=== PATIENT | female | born 1935 | race Caucasian/White ===

== ENCOUNTER 2017-04-27 15:06 | Observation (INO) | payer MEDICARE, BC ==
[2017-04-27 16:23] LABS: Troponin I 0.034 ng/mL (< 0.028)
[2017-04-27] MEDS ORDERED: Loratadine 10 MG TAB PO PRN (17:52)
[2017-04-27] MEDS ORDERED: hydrALAZINE 20 MG/ML VIAL SLOW IVP PRN (17:52)
[2017-04-27] MEDS ORDERED: Nitroglycerin 0.4 MG TAB (25 Tab Bottle) SL PRN (17:52)
[2017-04-27] MEDS ORDERED: Nitroglycerin 0.4 MG TAB (25 Tab Bottle) PO PRN (17:52)
[2017-04-27] MEDS ORDERED: Senokot 8.6 MG TAB PO PRN (17:52)
[2017-04-27] MEDS ORDERED: Acetaminophen 325 MG TAB PO PRN (17:52)
[2017-04-27] MEDS ORDERED: Calcium Carbonate 500 MG ChewTAB PO PRN (17:52)
[2017-04-27] MEDS ORDERED: Ondansetron HCl/PF 4 MG/2 ML Vial IVP PRN (17:52)
[2017-04-27] MEDS ORDERED: Mag-Al 1200 mg/1200 mg/30 ML UDCUP PO PRN (17:52)
[2017-04-27] MEDS ORDERED: Bisacodyl 5 MG TAB PO PRN (17:52)
[2017-04-27] MEDS ORDERED: cloNIDine 0.1 MG TAB PO PRN (17:52)
[2017-04-27] MEDS ORDERED: traMADol HCl 50 MG TAB PO PRN ×2 (17:52→19:25)
[2017-04-27] MEDS ORDERED: Diabetic Tussin 200 MG/10 ML UDCUP PO PRN (17:52)
[2017-04-27] MEDS ORDERED: Benzonatate 100 MG CAP PO PRN (17:52)
[2017-04-27 18:15] VITALS: BMI 28.9
[2017-04-27] MEDS ORDERED: Aspirin 325 MG TAB PO SCH (18:30)
[2017-04-27 18:58] LABS: Cardiac Risk 2.5 (Less than 4.5)
[2017-04-27 19:03] LABS: Troponin I 0.036 ng/mL (< 0.028)
[2017-04-27 19:41] LABS: Bacteria/HPF None Seen HPF (None Seen); Bilirubin Small (Negative); Blood, Urine Negative (Negative); Clarity CLEAR (Clear); Glucose, Urine (Dipstick) Negative (Negative); Leukocyte Small (Negative); Nitrite Negative (Negative); Pathc Cast-AUWi Flag 0.94 (0-2.49); Protein, Urine (Dipstick) Trace mg/dL (Neg-Trace); RBC/HPF 0-3 HPF (0-3); Specific Gravity, Urine 1.027 (1.002-1.036); Squamous Epithelial 0-3 HPF (0-3); WBC/HPF 21-50 HPF (0-3)
[2017-04-27 19:44] LABS: Hyaline Casts/LPF 0-3 HYALINE CAST LPF (0-3 Hyaline)
[2017-04-27] MEDS: Famotidine 20 MG TAB PO SCH (20:30)
[2017-04-27] MEDS ORDERED: Simvastatin 20 MG TAB PO SCH (21:00)
[2017-04-27] MEDS ORDERED: Escitalopram Oxalate 20 mg Tablet PO SCH (21:00)
[2017-04-27] MEDS ORDERED: Atenolol 25 MG TAB PO SCH (21:00)
[2017-04-27] MEDS ORDERED: Loratadine 10 MG TAB PO SCH (21:00)
--- NOTE | 2017-04-28 00:34 | HP ---
DATE OF ADMISSION: 04/27/2017 PRIMARY CARE PHYSICIAN: in [place]. CHIEF COMPLAINT: Chest pain. HISTORY OF PRESENT ILLNESS: Ms. Sheffield is a very pleasant 82-year-old female with past medical histor y of hypertension, dyslipidemia as well as hypothyroidism and history of leukemia in the , who c mario to the emergency room with the above-mentioned complaint. History is mainly obtained by the uvaldo ent herself. Electronic medical records have been reviewed and the case has been discussed with the emergency room physician. According to Ms. Sehffield, she has hurt her left shoulder few months ago and has recently been put on tr amadol for it. She has been also getting steroid shots for her left shoulder pain and is in the proc ess of following up with a surgeon as to for specific therapy. Nevertheless, she woke up this mornin g, took a tramadol and fell back asleep in a recliner only to be woken up 2 hours later with chest pr essure-like sensation. It was mainly located in the left center of the chest, going towards the [facility] t center. She describes it as a 4/5, pressure, but not specific sharp pain. Later, she was very buddy seous with it. She denies any dizziness, palpitations. She denies any radiation of the pain. She d enies any vomiting or diaphoresis. She denies any jaw, back or shoulder pain. She denies any arm par aesthesias. The pain persisted for about 30 minutes and meanwhile her daughter brought her to the em ergency room. The patient took 4 baby aspirins at home without any significant benefit. She reports that she has seen a pin ball machine mechanic, Dr. Gudino in [facility] and has had a regular stress test done as an outpatient. Her last stress test done was about 5 years ago. She never had any abn ormal stress test. She also has had echocardiograms done in the past which seemingly normal results. She had a few episodes of some dizziness in the last 2 or 3 days. She also has one history of pass ing out spell about 4 years ago with her cardiac workup was unremarkable. Upon presentation to [place] [facility], she was hemodynamically stable with blood pressure 128/62, pulse of 91, saturating 94% on room air. Her initial workup included a 12-lead EKG which was unremarkable and cardiac enzymes which were normal. She is now being admitted to our facility for f urther workup and rule out acute coronary syndrome. She denies any other recent illnesses. No fever, chills, cough, sore throat or rhinorrhea. No short ness of breath, orthopnea, PND or edema. No nausea, vomiting, diarrhea, abdominal pain. No dysuria, frequency, urgency. PAST MEDICAL HISTORY: 1. Hypertension. 2. Dyslipidemia. 3. Hypothyroidism. 4. Chronic left shoulder pain. 5. History of leukemia. PAST SURGICAL HISTORY: 1. Hernia removal. 2. Cholecystectomy. 3. Bilateral knee replacement. 4. Cataract surgery. PSYCHIATRIC HISTORY: Anxiety and depression. SOCIAL HISTORY: She lives with her daughter and is fairly independent with her ADLs and IADLs. She is still driving. No history of drug, tobacco or alcohol abuse. ALLERGIES: DEMEROL and HYDROCODONE. CURRENT MEDICATIONS: Aspirin 81 mg daily, losartan 50 mg daily; atenolol, unknown dose; Synthroid un known dose, amlodipine 5 mg daily, vitamin B12 daily. These medications will further need to be clar ified. FAMILY HISTORY: Significant for hypertension in her father. Her mother also has history of stroke. REVIEW OF SYSTEMS: The following complete review of systems was negative, unless otherwise mentioned in the HPI or below: Constitutional: Weight loss or gain, ability to conduct usual activities. Sk in: Rash, itching. Eyes: Double vision, pain. ENT/Mouth: Nose bleeding, neck stiffness, pain, te nderness. Cardiovascular: Palpitations, dyspnea on exertion, orthopnea. Respiratory: Shortness of breath, wheezing, cough, hemoptysis, fever or night sweats. Gastrointestinal: Poor appetite, abdom inal pain, heartburn, nausea, vomiting, constipation, or diarrhea. Genitourinary: Urgency, frequenc y, dysuria, nocturia. Musculoskeletal: Pain, swelling. Neurologic/Psychiatric: Anxiety, depressio n. Allergy/Immunologic: Skin rash, bleeding tendency. PHYSICAL EXAMINATION: VITAL SIGNS: Her most recent vital signs, Blood pressure 145/76, pulse of 92, respirations 15, tempe rature 98.5, saturating 97% on room air. HEENT: Mucous membrane is moist and pink. No oropharyngeal exudate or erythema. Head is normocepha lic, atraumatic. Pupils are equal, reactive to light and accommodation. Extraocular movements are i ntact. NECK: Supple without any lymphadenopathy, JVD or bruit. CHEST: Clear to auscultation without any wheezing, rales or rhonchi. CARDIOVASCULAR: Rate and rhythm is regular without any murmur, rubs or gallops. ABDOMEN: Soft, nontender, nondistended, positive bowel sounds. EXTREMITIES: Free of any cyanosis, clubbing, or edema. NEUROLOGIC: Nonfocal. SKIN: Free of any rashes or bruises. Feels warm and dry to touch. PSYCHIATRIC: Normal affect. LABORATORY DATA: A 12-lead EKG by my review shows normal sinus rhythm at 81 beats per minute without any acute ST-T wave changes. Chest x-ray by my review has no evidence of infiltrate, effusion, or p ulmonary edema. CBC shows WBCs at 11.9, otherwise unremarkable. D-dimer is within normal limits. Serum chemistries unremarkable. Troponin initially 0.012 with repeat troponin of 0.034. IMPRESSION AND PLAN: 1. Chest pain. The patient does have multiple risk factors including advanced age and family histor y and history of hypertension. She will be admitted to telemetry unit for risk stratification. She will undergo a nuclear medicine stress test as well as serial cardiac enzymes. We will continue her statin and add full dose aspirin for now. Continue the beta angel and ARB as well. I have advised the patient to have a transthoracic echocardiogram as an outpatient to rule out any valvular stenosi s given her history of dizziness and history of syncope a few years ago. The patient will be referre d to Cardiology as an outpatient. Monitor her blood pressure and restart her home medications accord ingly. If her cardiac enzymes continue to trend upwards, we will cancel the stress test and consult Cardiology for further evaluation and possible cardiac catheterization. Continue to monitor for now. 2. History of hypertension. We will restart her medications of amlodipine, losartan, and atenolol o nce the dosages are confirmed. 3. History of hypothyroidism. We will restart her levothyroxine at home dosages. 4. Dyslipidemia. We will restart her simvastatin at home dosages and check lipid panel and adjust t he medications as needed. 4. Code status: FULL CODE, as discussed with the patient. DISPOSITION: Ms. Sheffield is being admitted to the hospital under observation status for further workup for chest pain and rule out ACS. Further management will depend upon her clinical course.
[2017-04-28 05:32] LABS: #Basophils 0.1 thou/uL (0.0-0.2); #Eosinphils 0.2 thou/uL (0.0-0.7); #Lymphocytes 3.6 thou/uL (1.20-3.40); #Monocytes 0.8 thou/uL (0.11-0.59); #Neutrophils 4.9 thou/uL (1.40-6.50); %Basophils 0.9 % (0.0-1.0); %Eosinophils 2.2 % (0.0-10.0); %Monocytes 8.5 % (0.0-10.0); %Neutrophils 51.4 % (42.0-75.0); Hemoglobin 13.4 g/dL (12.0-16.0); Mean Corpuscular HGB CONC 33.7 g/dL (32.0-36.0); Mean Corpuscular Hemoglobin 30.3 pg (27.0-31.0); Mean Corpuscular Volume 89.9 fl (81.0-99.0); Mean Platelet Volume 7.6 fL (7.4-10.4); Platelet Count 238 thou/uL (130-400); RBC Distribution Width 12.1 % (11.5-14.5); Red Blood Cell (RBC) Count 4.43 mill/uL (4.20-5.40); White Blood Cell (WBC) Count 9.6 thou/uL (4.8-10.8)
[2017-04-28 05:58] LABS: Anion Gap 12 mmol/L (10-20); BUN (Urea Nitrogen) 13 mg/dL (9.8-20.1); Calc. Creatinine Clearance 83 mL/min (70-130); Calcium 9.6 mg/dL (7.8-10.44); Carbon Dioxide 30 mmol/L (23-31); Chloride 99 mmol/L (98-107); Estimated GFR-MDRD 88; Glucose 93 mg/dL (83-110); Potassium 3.5 mmol/L (3.5-5.1); Sodium 137 mmol/L (136-145)
[2017-04-28] MEDS ORDERED: Levothyroxine Sodium 125 MCG TAB PO SCH (06:00)
[2017-04-28] MEDS ORDERED: Aspirin 325 MG TAB PO SCH (08:00)
[2017-04-28 08:37] LABS: CKMB 1.5 ng/mL (0-6.6)
[2017-04-28 08:51] VITALS: TEMP 98.4
[2017-04-28] MEDS ORDERED: Losartan 25 MG TAB PO SCH (09:00)
[2017-04-28] MEDS ORDERED: Amlodipine 5 MG TAB PO SCH (09:00)
[2017-04-28] MEDS ORDERED: Cetirizine HCl 10 MG TAB PO SCH (09:00)
[2017-04-28] MEDS ORDERED: Enoxaparin Sodium 40 MG/0.4 ML SYRINGE SC SCH (09:00)
[2017-04-28] MEDS ORDERED: ADENOSINE 60 MG/20 ML VIAL ONE (13:18)
--- NOTE | 2017-04-28 16:03 | PDOC.PN ---
- Subjective Encounter Start Date: 04/28/17 Encounter Start Time: 16:03 Subjective: feels much better. no more pain in chest. -: shoulder pain has improved as well w/o any intervention -: no SOB - Objective Resuscitation Status: Resuscitation Status FULL:Full Resuscitation MAR Reviewed: Yes Vital Signs & Weight: Vital Signs (12 hours) Temp Pulse Resp BP Pulse Ox 04/28/17 08:45 98.4 F 66 16 04/28/17 07:43 98.4 F 66 16 129/72 95 04/28/17 04:13 98.0 F 66 16 153/68 H 98 Weight Weight 168 lb 6.4 oz I&O: 04/27/17 04/28/17 04/29/17 06:59 06:59 06:59 Intake Total 240 Output Total 600 Balance -360 Result Diagrams: 04/28/17 04:22 04/28/17 04:22 Radiology Reviewed by me: Yes Phys Exam - Physical Examination Constitutional: NAD HEENT: PERRLA, moist MMs, sclera anicteric, TM's clear, oral pharynx no lesions , 2+ tonsils Neck: no nodes, no JVD, supple, full ROM Respiratory: no wheezing, no rales, no rhonchi, clear to auscultation bilateral Cardiovascular: RRR, no significant murmur Gastrointestinal: soft, non-tender, no distention, positive bowel sounds Musculoskeletal: no edema, pulses present Neurological: non-focal, normal sensation, moves all 4 limbs Psychiatric: normal affect, A&O x 3 Dx/Plan (1) Chest pain Code(s): R07.9 - CHEST PAIN, UNSPECIFIED Status: Acute (2) UTI (urinary tract infection) Status: Acute (3) HTN (hypertension) Code(s): I10 - ESSENTIAL (PRIMARY) HYPERTENSION Status: Acute (4) HLD (hyperlipidemia) Code(s): E78.5 - HYPERLIPIDEMIA, UNSPECIFIED Status: Acute (5) Hypothyroid Code(s): E03.9 - HYPOTHYROIDISM, UNSPECIFIED Status: Acute - Plan DVT proph w/SCDs likley non cardiac CP but troponin borderline -: waiting for stress test.DC home if NL. -: OP f/u w cardiology given -: Pt offered Pt at home but declined at this time -: F/U Ortho as an OP for Shoulder pain/injury * .Empiric ABx .send urine for culture. Review of Systems - Review of Systems Constitutional: negative: fever, chills, sweats, weakness, malaise, other ENT: negative: Ear Pain, Ear Discharge, Nose Pain, Nose Discharge, Nose Congestion, Mouth Pain, Mouth Swelling, Throat Pain, Throat Swelling, Other Respiratory: negative: Cough, Dry, Shortness of Breath, Hemoptysis, SOB with Excertion, Pleuritic Pain, Sputum, Wheezing Cardiovascular: negative: chest pain, palpitations, orthopnea, paroxysmal nocturnal dyspnea, edema, light headedness, other Gastrointestinal: negative: Nausea, Vomiting, Abdominal Pain, Diarrhea, Constipation, Melena, Hematochezia, Other Genitourinary: negative: Dysuria, Frequency, Incontinence, Hematuria, Retention , Other Musculoskeletal: Shoulder Pain. negative: Neck Pain, Arm Pain, Back Pain, Hand Pain, Leg Pain, Foot Pain, Other Neurological: negative: Weakness, Numbness, Incoordination, Change in Speech, Confusion, Seizures, Other - Medications/Allergies Allergies/Adverse Reactions: Allergies Allergy/AdvReac Type Severity Reaction Status Date / Time hydrocodone Allergy Verified 04/27/17 18:31 meperidine [From Demerol] Allergy Verified 04/27/17 18:31
[2017-04-28 16:16] VITALS: BP 146/69
[2017-04-28] MEDS: Famotidine 20 MG TAB PO SCH (16:17)
--- NOTE | 2017-04-28 17:33 | NM ---
NUCLEAR MEDICINE CARDIAC PERFUSION WITH EJECTION FRACTION: Comparison: None. History: 82-year-old female with chest pain, hypertension, dyslipidemia. Technique: A single day Nuclear Medicine cardiac perfusion examination was performed. Rest images wer e obtained using 9.6 mCi Technetium 99M Sestamibi. Stress images were obtained using 30 mCi Technetiu m 99M Sestamibi and Adenosine. FINDINGS: Tomographic images show no fixed or reversible perfusion defects. The images show normal wall motion with ejection fraction greater than 70%. EDV is 45 ml. LHR 0.3. IMPRESSION: No evidence of ischemia. POS: ROBERT
--- NOTE | 2017-04-29 13:22 | DIS ---
DATE OF ADMISSION: 04/27/2017 DATE OF DISCHARGE: 04/28/2017 PRIMARY CARE PHYSICIAN: Dr. Zahida Kiser at [facility]. DISCHARGE DIAGNOSES: 1. Chest pain, noncardiac. 2. Indeterminant troponin, likely demand ischemia from vomiting, and urinary tract infection. 3. Urinary tract infection. 4. Hypertension. 5. Dyslipidemia. DISCHARGE MEDICATIONS: Resume home medications as follows, Ultram as needed, Zocor 20 mg daily, Pinnacle pro 20 mg daily, Norvasc 5 mg daily, Claritin as needed, Synthroid 125 mcg daily, atenolol 25 mg cruz y, Cozaar 50 mg daily. New medication, aspirin 81 mg daily, and levofloxacin 500 mg p.o. daily for 4 more days. PROCEDURES DONE: In the hospital include nuclear medicine stress test, which shows no evidence of is chemia or infarction. EF estimated at greater than 70%. HISTORY OF PRESENT ILLNESS: Ms. Sheffield is a very pleasant 82-year-old [facility]. She has history of hypertension, dyslipidemia, and hypoth yroidism. Upon presentation, she was totally hemodynamically stable. Her 12-lead EKG and initial ca rdiac enzymes were normal. She was admitted for further workup and rule out acute coronary syndrome. Please see admission history and physical dictated by myself. HOSPITAL COURSE: The patient's troponins were trended and she did have slight bump in the troponin f rom 0.012 upon admission to 0.036. It trended down again to 0.010. The patient's chest pain symptom s have completely stopped by the time she was admitted. Her lipid panel was checked, which was unrem arkable. For further risk stratification, she underwent a nuclear medicine cardiac stress test, whic h was also normal. Nevertheless, she has been having some symptoms of dizziness and one spell of syn cope a few years ago and for this reason, she was requesting outpatient Cardiology followup. She was given referral to Dr. Chawla to see in the Cardiology Clinic. She was found to have mild urinary tract infection for which she received empiric levofloxacin. Urin e was sent to culture. She was seen and examined prior to discharge. Please see hospitalist progress note from the date of discharge for further details. At this time, she is hemodynamically stable and there is no evidence to suggest ACS. She will follow up with her primary care physician in 7-10 days.
== END 2017-04-28 18:03 | disposition home or self-care (01) ==
LOC: ERS 15:06 → 2SW 15:19
PROVIDERS: ADMIT Internal Medicine; ATTEND Internal Medicine
DX: R07.89 Other chest pain (principal); N39.0 Urinary tract infection, site not specified; I10 Essential (primary) hypertension; E78.5 Hyperlipidemia, unspecified; E03.9 Hypothyroidism, unspecified; F41.9 Anxiety disorder, unspecified; F32.9 Major depressive disorder, single episode, unspecified; Z85.6 Personal history of leukemia; Z82.3 Family history of stroke; Z79.82 Long term (current) use of aspirin; Z79.899 Other long term (current) drug therapy; Z88.5 Allergy status to narcotic agent; Z96.653 Presence of artificial knee joint, bilateral; Z90.49 Acquired absence of other specified parts of digestive tract; Z98.49 Cataract extraction status, unspecified eye; Z98.890 Other specified postprocedural states
CPT/HCPCS: 78452; 80048; 80061; 81001; 82553; 84484 ×2; 85025; 87086; 93005; 93017; 94760; 97139; 99285; A9500; G0378; 36415; J0153